=== PATIENT | female | born 1975 | race Two or more races ===

== ENCOUNTER 2021-11-30 09:30 | Outpatient (CLI) | payer BC | END 2021-11-30 23:59 | disposition home or self-care (01) | LOC: WOU 09:30 | PROVIDERS: ATTEND Specialist | DX: Z01.818 Encounter for other preprocedural examination (principal); M84.672D Pathological fracture in other disease, left ankle, subsequent encounter for fracture with routine healing; M87.872 Other osteonecrosis, left ankle | CPT/HCPCS: G0463 ==

== ENCOUNTER 2021-12-20 09:30 | Outpatient (CLI) | payer BC | END 2021-12-20 23:59 | disposition home or self-care (01) | LOC: WOU 09:30 | PROVIDERS: ATTEND Podiatrist Foot & Ankle Surgery | DX: M87.872 Other osteonecrosis, left ankle (principal); M84.472K Pathological fracture, left ankle, subsequent encounter for fracture with nonunion; M19.072 Primary osteoarthritis, left ankle and foot | CPT/HCPCS: G0463 ==

== ENCOUNTER 2021-12-30 09:15 | Outpatient (CLI) | payer BC ==
[2021-12-30] MEDS ORDERED: DEXAMETHASONE SOD PHOSPHATE 4 MG/ML VIAL IV ONE (10:00)
[2021-12-30] MEDS ORDERED: ETHYL CHLORIDE SPRAY 1 EA BOTTLE TP ONE (10:00)
[2021-12-30] MEDS ORDERED: BUPIVACAINE 0.5 % PF 150 MG/30 ML VIAL IJ ONE (10:00)
== END 2021-12-30 23:59 | disposition home or self-care (01) ==
LOC: WOU 09:15
PROVIDERS: ATTEND Podiatrist Foot & Ankle Surgery
DX: M84.672D Pathological fracture in other disease, left ankle, subsequent encounter for fracture with routine healing (principal); M19.171 Post-traumatic osteoarthritis, right ankle and foot; M87.872 Other osteonecrosis, left ankle; M25.571 Pain in right ankle and joints of right foot; R60.0 Localized edema
CPT/HCPCS: 20600; J1100; J3490

== ENCOUNTER 2022-01-10 11:25 | Outpatient (CLI) | payer BC | END 2022-01-10 23:59 | disposition home or self-care (01) | LOC: WOU 11:25 | PROVIDERS: ATTEND Podiatrist Foot & Ankle Surgery | DX: M87.872 Other osteonecrosis, left ankle (principal); M84.672D Pathological fracture in other disease, left ankle, subsequent encounter for fracture with routine healing | CPT/HCPCS: G0463 ==

== ENCOUNTER 2022-03-14 10:30 | Outpatient (CLI) | payer BC | END 2022-03-14 23:59 | disposition home or self-care (01) | LOC: WOU 10:30 | PROVIDERS: ATTEND Podiatrist Foot & Ankle Surgery | DX: S82.52XK Displaced fracture of medial malleolus of left tibia, subsequent encounter for closed fracture with nonunion (principal); X58.XXXD Exposure to other specified factors, subsequent encounter; M87.872 Other osteonecrosis, left ankle; M19.172 Post-traumatic osteoarthritis, left ankle and foot; M19.171 Post-traumatic osteoarthritis, right ankle and foot; M25.572 Pain in left ankle and joints of left foot; M25.571 Pain in right ankle and joints of right foot | CPT/HCPCS: G0463 ==

== ENCOUNTER 2022-03-21 10:30 | Outpatient (CLI) | payer BC ==
[2022-03-21] MEDS ORDERED: LIDOCAINE 2% 20 ML MDV IJ ONE (11:30)
[2022-03-21] MEDS ORDERED: TRIAMCINOLONE ACETONIDE SUSP 40 MG/ML VIAL IM ONE (11:30)
[2022-03-21] MEDS ORDERED: ETHYL CHLORIDE SPRAY 1 EA BOTTLE TP ONE (11:30)
== END 2022-03-21 23:59 | disposition home or self-care (01) ==
LOC: WOU 10:30
PROVIDERS: ATTEND Podiatrist Foot & Ankle Surgery
DX: M19.171 Post-traumatic osteoarthritis, right ankle and foot (principal); M19.172 Post-traumatic osteoarthritis, left ankle and foot; M87.872 Other osteonecrosis, left ankle; S82.52XK Displaced fracture of medial malleolus of left tibia, subsequent encounter for closed fracture with nonunion; X58.XXXD Exposure to other specified factors, subsequent encounter; M25.572 Pain in left ankle and joints of left foot; M25.571 Pain in right ankle and joints of right foot
CPT/HCPCS: 20605; J3301; J3490

== ENCOUNTER 2022-06-06 11:00 | Outpatient (CLI) | payer BC ==
[2022-06-06] MEDS ORDERED: LIDOCAINE HCL/MPF 1% 30 ML VIAL IJ ONE (11:47)
[2022-06-06] MEDS ORDERED: DEXAMETHASONE SOD PHOSPHATE 4 MG/ML VIAL IV ONE (12:00)
[2022-06-06] MEDS ORDERED: ETHYL CHLORIDE SPRAY 1 EA BOTTLE TP ONE (12:00)
== END 2022-06-06 23:59 | disposition home or self-care (01) ==
LOC: WOU 11:00
PROVIDERS: ATTEND Podiatrist Foot & Ankle Surgery
DX: M19.171 Post-traumatic osteoarthritis, right ankle and foot (principal); M19.172 Post-traumatic osteoarthritis, left ankle and foot; S82.52XK Displaced fracture of medial malleolus of left tibia, subsequent encounter for closed fracture with nonunion; S93.402D Sprain of unspecified ligament of left ankle, subsequent encounter; X58.XXXD Exposure to other specified factors, subsequent encounter; M25.572 Pain in left ankle and joints of left foot; M25.571 Pain in right ankle and joints of right foot
CPT/HCPCS: 20605; J1100; J3490